=== PATIENT | male | born 1970 | race Caucasian/White ===

== ENCOUNTER 2019-01-16 22:36 | Emergency (ER) | payer OTHER ==
[~2019-01-16] VITALS: Ht 177.8 cm; Wt 79.4 kg
[2019-01-16] MEDS ORDERED: SYNTHROID100 MC1 (23:03)
[2019-01-16] MEDS ORDERED: WELLBUTRIN 75 M75 M1 (23:03)
[2019-01-16] MEDS ORDERED: HYDROCHLOROTH12.5 M1 PO (23:18)
[2019-01-16 23:39] LABS: CALCIUM 9.3 mg/dL (8.5-10.1); CREATININE 1.1 mg/dL (0.6-1.3); POTASSIUM 3.7 mmol/L (3.5-5.1)
[2019-01-16 23:50] VITALS: BP 144/90
== END 2019-01-16 23:52 | disposition home or self-care (01) ==
LOC: M.ERS 22:36
PROVIDERS: Emergency Medicine Emergency Medical Services
DX: I10 Essential (primary) hypertension (principal); F32.9 Major depressive disorder, single episode, unspecified; F41.9 Anxiety disorder, unspecified